=== PATIENT | female | born 1975 | race Caucasian/White ===

== ENCOUNTER 2023-01-17 07:56 | Outpatient (CLI) | payer BC, SELFPAY ==
--- OUTSIDE RECORDS SUMMARY | 2023-01-17 07:59 | XMS_ITS | Patient Health Record ---
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0 Protein Negative Negative mg/dL Uro 0.2 E.U./dL 0.2 - 1.0 E.U./dL Nitrite Negative Negative Leuk Negative Negative Urine Culture Reviewed date:12/04/2022 06:00:55 AM Interpretation:neg Performing Lab: Notes/Report: URINE CULTURE SEE RESULTS BELOW SPECIMEN SOURCE Urine Urine, NOS CULTURE RESULTS No Growth REPORT STATUS FINAL 12/03/2022 Mammogram : Screening Reviewed date:11/08/2022 05:30:38 PM Interpretation:Negative Performing Lab: Notes/Report: Original Report EXAM: FULL-FIELD DIGITAL BILATERAL SCREENING 3D TOMOSYNTHESIS MAMMOGRAPHY WITH CAD CLINICAL INFORMATION: Screening. The patient reports no palpable abnormalities or other breast concern. TECHNICAL INFORMATION: Bilateral craniocaudal and mediolateral oblique full-field digital views with breast 3D tomosynthesis images were obtained. CAD was applied. COMPARISON: 06/01/2021, 04/06/2020 Total Lifetime Breast Cancer Risk assessment (TLR): 7.48%, Low Risk Category (<10%) based on information provided by the patient and mammographic breast density utilizing recognized breast cancer risk assessment model. National average TLR =12.5%. INTERPRETATION: The breast tissue has scattered fibroglandular densities. There are no suspicious microcalcifications, focal dominant masses, or areas of architectural distortion. No evidence of malignancy. BREAST COMPOSITION: Category B. There are scattered areas of fibroglandular density. CONCLUSION: 1. No evidence of malignancy. 2. BI-RADS 1. Negative. RECOMMENDATION: Annual screening 3D mammography. The appropriate information has been entered into a reminder system with a targeted due date for the next mammogram. BI-RADS 1 = Negative. [facility] sent letter to patient regarding results. Read by: MARIAH FITZPATRICK M.D. Reviewed and Electronically Signed by: MARIAH FITZPATRICK M.D. Imaging [facility] - [place]:[facility], [id number] [place], [place] [id number] REASON FOR REFERRAL No Information MEDICATIONS Medication SIG (Take, Route, Frequency, Duration) Notes Start Date End Date Status ZyrTEC Allergy 10 MG 1 tab(s) orally seasonal Active Fish Oil 1000 MG 1 cap(s) orally once a day Active Co Q-10 100 MG 1 cap(s) orally occationally Not-Taking Vitamin D3 25 MCG (1000 UT) 1 tab(s) orally once a day Active LORazepam 0.5 MG 1 tab orally every 8 hours as needed for 30 days 10/14/2020 Active Cyclobenzaprine HCl 5 MG TAKE ONE TABLET BY MOUTH AT BEDTIME for 20 Not-Taki ng Magnesium Glycinate 665 MG as directed Orally Active Estradiol 0.1 MG/GM 1 gm intravaginally nightly for 2 weeks then twice a week 11/06/2019 Not-Taking Multivitamin - 1 tab(s) orally once a day Active Probiotic Formula 1-250 BILLION-MG 1 cap(s) orally occationally Active Progesterone 100 MG 1 capsule at bedtime Orally Once a day Active traZODone HCl 50 MG 1 tablet at bedtime as needed Orally Once a day Active Unlisted Medication BiEst 80:20 2 mg 1/2 gram (2 clicks) topically at bedtime Active Vitamin B Complex - qd Active IMMUNIZATIONS Vaccine Route Administration Date Status Comme nts Tdap (Adacel 11-64 yrs) Unknown 11/04/2011 Administered SOCIAL HISTORY Tobacco Use: Social History Observation Description Date Details (start date - stop date) Never Smoker NA - NA Sex Assigned At : Social History Observation Description Sex Assigned At Unknown Tobacco Status Question Answer Notes I am: never smoker PROBLEMS Problem Type ICD Code Onset Dates Problem Status W/U Status Risk SNOMED Code Notes Problem Anxiety (F41.9) Active confirmed 582231 02 Problem Neck pain (M54.2) Active confirmed 8168 0005 Problem Tension headache (G44.209) Active confirmed 956909913 Problem Mixed hyperlipidemia (E78.2) Active confirmed 496190568 Problem Thyroid nodule (E04.1) Active confirmed 160028771 Problem Postmenopausal atrophic vaginitis (N95.2) Active confirmed 95993455 Problem Moderate obstructive sleep apnea (G47.33) Active confirmed 38331377 Problem Chiari malformation type I (G93.5) Active confirmed 366196852 Problem Acute bilateral low back pain without sciatica (M54.5) Active confirmed 444227330 Problem Chronic gastritis without bleeding, unspecified gastritis type (K29.50) Active confirmed 1533253 Problem Dyspareunia in female (N94.10) Active confirmed 09222371 Problem Dyspareunia due to medical condition in female (N94.19) Active confirmed 554391860 Problem TMJ (temporomandibular joint disorder) (M26.609) Active confirmed 50638488 Problem Sprain, symphysis pubis, initial encounter (S33.8XXA) Active confirmed 215754770 Problem Occipital headache (R51.9) Active confirmed 655349 VITAL SIGNS Blood pressure diastolic 80 mm Hg 12/01/2022 Height 63 in 12/01/2022 Blood pressure systolic 114 mm Hg 12/01/2022 Weight 165 lbs 12/01/2022 BMI 29.23 kg/m2 12/01/2022 Encounters Encounter Location Date Provider Diagnosis JULIANO NICHOLS [id number] [id number] 12/01/2022 Beata Vasquez Urinary frequency R3 5.0 ; Dyspareunia due to medical condition in female N94.19 and Dietary surveillance and counseling Z71.3 ASSESSMENTS Encounter Date Diagnosis Assessment Notes Treatment Notes Treatment Clinical Notes 12/01/2022 Urinary frequency (ICD-10 - R35.0) 12/01/2022 Dyspareunia due to medical condition in female (ICD-10 - N94.19) 12/01/2022 Dietary surveillance and counseling (ICD-10 - Z71.3) Learning About Healthy Weight material was printed 12/01/2022 Other PLAN OF TREATMENT No Information Insurance Providers Payer Name Payer Address Payer Phone Subscriber Number Group Number Insured Name Patient Relationship to Insured Coverage Start Date Coverage End Date [employer] [facility] [address] [address] [place] [phone] [id number] Kunal Jones Spouse - patient is the spouse of the insured 8 MEDICAL (GENERAL) HISTORY Medical History History ICD Code Anxiety Basal Cell Skin Cancer over L eye Chiari Malformation type 1, found incide ntal 06/2016 TMJ syndrome Thyroid Nodule Dyspareunia Lumbar Radiculopathy L5-S1 m ild disc degeneraion with mod R foraminal protrusion MINO 03/2020 AHI 17 Surgical History Surgery Date(Month/Year) Basal Cell Carcinoma Excision 01/2018 Screw in foot removed 03/2015 08/2008 04/2006 Bunionectomy Bilateral 2003 No personal or family history of bleedin g problems No personal or family history of anesthe keo problems Hospitalization History Reason Date(Month/Year) Panic Attack due to severe sleep Depriva tion 12/2017 childbirth surgeries
--- NOTE | 2023-01-17 08:15 | CRLHL7_ITS ---
For Patients: As a result of the Century Cures Act, medical imaging exams and procedure reports are released immediately into your electronic medical record. You may view this report before your referring provider. If you have questions, please contact your health care provider. INDICATION: Right upper quadrant abdominal pain. Generalized epigastric abdominal pain. Cough particularly at night. TECHNIQUE: Single and double-contrast esophagram. FINDINGS: Normal esophagus without stricture, mass, or obstruction. There is no evidence for esophageal dysmotility. No evidence for reflux either in the upright or recumbent position. No esophageal hiatal hernia. No evidence for esophagitis. The visualized included stomach and duodenum are within normal limits. These findings were discussed briefly with the patient. 2 minute 16 seconds fluoroscopy time utilized. IMPRESSION : Negative single and double-contrast esophagram. Dictated by Chip Hayward MD @ 01/17/2023 9:23:25 AM (Electronically Signed)
== END 2023-01-17 07:57 | disposition home or self-care (01) ==
LOC: RAD 07:57
PROVIDERS: PCP Family Medicine; Visit Provider Internal Medicine Gastroenterology
DX: R10.11 Right upper quadrant pain (principal); K21.9 Gastro-esophageal reflux disease without esophagitis; R05.9 Cough, unspecified
CPT/HCPCS: 74221

== ENCOUNTER 2023-08-21 07:30 | Outpatient (RCR) | payer BC, SELFPAY | END 2023-12-19 23:59 | disposition home or self-care (01) | PROVIDERS: PCP Family Medicine; Visit Provider Family Medicine | DX: R10.2 Pelvic and perineal pain (principal); M54.50 Low back pain, unspecified; R25.2 Cramp and spasm; Z51.89 Encounter for other specified aftercare | CPT/HCPCS: 97110; 97140; 97162; 97535 ==

== ENCOUNTER 2024-07-30 15:00 | Outpatient (RCR) | payer BC, SELFPAY | END 2024-11-27 23:59 | disposition home or self-care (01) | PROVIDERS: PCP Family Medicine; Visit Provider Family Medicine | DX: Z51.89 Encounter for other specified aftercare (principal); R10.2 Pelvic and perineal pain; N94.10 Unspecified dyspareunia; R39.15 Urgency of urination; R35.0 Frequency of micturition | CPT/HCPCS: 97110; 97140; 97162; 97535 ==